=== PATIENT | female | born 1955 | race Caucasian/White ===

== ENCOUNTER 2020-10-24 17:50 | Inpatient (IN) | payer MEDICARE, BC ==
[~2020-10-24] VITALS: Ht 165.1 cm; Wt 58.1 kg
--- NOTE | 2020-10-24 18:07 | NUR ---
URINE COLLECTED AND SENT TO LAB
--- NOTE | 2020-10-24 18:13 | NUR ---
SEEN BY , SALINE LOCK ESTABLISHED, BLOOD DRAWN
--- NOTE | 2020-10-24 18:14 | NUR ---
SON AT BEDSIDE
[2020-10-24 18:34] LABS: BASOPHILS % (AUTO) 0.4 % (0.0-2.0); HEMATOCRIT 41 % (33-45); HEMOGLOBIN 13.5 g/dL (11.5-14.8); LYMPHOCYTES # (AUTO) 0.7 K/uL (0.8-4.8); LYMPHOCYTES % (AUTO) 9.3 % (20.0-44.0); MEAN CORPUSCULAR HGB CONC 33 g/dl (31.0-36.0); MEAN CORPUSCULAR VOLUME 97 fL (82-100); MONOCYTES # (AUTO) 0.2 K/uL (0.1-1.30); MONOCYTES % (AUTO) 3.1 % (2.0-12.0); NEUTROPHILS # (AUTO) 6.6 K/uL (1.8-8.9); NEUTROPHILS % (AUTO) 87.2 % (43.0-81.0); PLATELET COUNT (AUTO) 304 K/uL (150-450); RED BLOOD CELL COUNT(AUTO) 4.17 MIL/uL (4.0-5.2); WHITE BLOOD COUNT (AUTO) 7.6 K/uL (4.3-11.0)
--- NOTE | 2020-10-24 18:40 | NUR ---
ENTHONE SOLDER STRIPPER AT BEDSIDE
[2020-10-24 18:50] LABS: CALCIUM, SERUM 9.4 mg/dL (8.5-10.1); CARBON DIOXIDE 28 mmol/L (21-32); CHLORIDE 104 mmol/L (98-107); CREATININE 0.6 mg/dL (0.6-1.3); GLUCOSE 112 mg/dL (74-106); POTASSIUM 3.7 mmol/L (3.5-5.1); SODIUM SERUM 142 mmol/L (136-145); UREA NITROGEN, BLOOD 12 mg/dL (7-18)
[2020-10-24] MEDS ORDERED: IOHEXOL-350 100 ML VIAL IV ONE (18:55)
[2020-10-24] MEDS ORDERED: CT SWABBABLE VALVE TRANS SET 1 EA INFUS.SET MC ONE (18:55)
[2020-10-24] MEDS ORDERED: IV NS 0.9% 250 ML IV ONE (18:55)
[2020-10-24 18:56] LABS: ALANINE AMINOTRANSFERASE 30 U/L (12-78); ALBUMIN 4.2 g/dL (3.4-5.0); ALKALINE PHOSPHATASE 114 U/L (46-116); ASPARTATE AMINOTRANSFERASE 19 U/L (15-37); BILIRUBIN,DIRECT 0.1 mg/dL (0.0-0.2); BILIRUBIN,TOTAL 0.3 mg/dL (0.2-1.0); TOTAL PROTEIN, SERUM 8.2 g/dL (6.4-8.2)
--- NOTE | 2020-10-24 19:30 | NUR ---
RECIEVED REPORT FROM SOPHIA HERNANDEZ.
--- NOTE | 2020-10-24 20:15 | NUR ---
DR. HYLTON AT BEDSIDE.
[2020-10-24] MEDS ORDERED: ASPIRIN 325 MG TABLET PO ONE (20:30)
[2020-10-24] MEDS ORDERED: ONDANSETRON 4 MG TAB.RAPDIS SL ONE (20:30)
[2020-10-24] MEDS ORDERED: ASPIRIN 325 MG TABLET ONE (20:30)
[2020-10-24] MEDS ORDERED: ONDANSETRON 4 MG TAB.RAPDIS ONE (20:30)
--- NOTE | 2020-10-24 20:34 | NUR ---
CHAYO [phone] (SON) NEGTOBI [phone] (DAUGHTER)
--- NOTE | 2020-10-24 21:44 | NUR ---
REPORT GIVEN TO SOPHIA WOODARD
[2020-10-24] MEDS ORDERED: MAG HYDROX/AL HYDROX/SIMETH 30 ML UDC PO PRN (22:00)
[2020-10-24] MEDS ORDERED: ACETAMINOPHEN 325 MG TABLET PO PRN (22:00)
[2020-10-24] MEDS ORDERED: Z GUARD REMEDY 2 OZ OINT TP PRN (22:00)
[2020-10-24] MEDS ORDERED: MAGNESIUM HYDROXIDE 30 ML UDC PO PRN (22:00)
[2020-10-24] MEDS ORDERED: ZOLPIDEM TARTRATE 5 MG TABLET PO PRN (22:00)
[2020-10-24] MEDS ORDERED: ONDANSETRON HCL/PF 4 MG/2 ML VIAL IVP PRN (22:00)
[2020-10-24 22:10] VITALS: BP 120/73
--- NOTE | 2020-10-24 22:10 | NUR ---
TELE ADMISSION RN NOTE REPORT RECEIVED FROM KAPIL-- PATIENT ARRIVED IN THE UNIT AT THIS TIME VIA GURNEY. A/OX4. AMBULATORY. NO S/S OF APPARENT DISTRESS TOLERATING ROOM AIR. NO C/O PAIN AT THE TIME. ALTHOUGH PATIENT REPORTS FEELING NAUSEATED. PATIENT PUT IN TELE MONITOR READING SINUS RHYTHM 64BPM. PATIENT HAS R. FOREARM IV LINE, PATENT AND INTACT-- NO IV FLUIDS RUNNING AT THIS TIME. DENIES ANY ALLERGIES AND ANY MEDICAL HISTORY OTHER THAN BRONCHITIS-- PATIENT DID ADMIT THAT SHE IS A SMOKER. PATIENT REPORTED GETTING TESTED FOR COVID IN [facility] RECENTLY AND RESULT CAME BACK NEGATIVE. PATIENT ID BAND ON, BELONGINGS SIGNED AND CHECKED FOR. V/S FOLLOWS: BP- 120/73, T-98.3, HR- 63BPM, RR 18 BPM, SATURATION 96% IN ROOM AIR. WILL CONTINUE TO MONITOR PATIENT.
--- NOTE | 2020-10-24 22:21 | NUR ---
PT TRANSFERRED TO 306 PER ACLS
--- NOTE | 2020-10-24 22:45 | NUR ---
FIELD ASSESSOR NOTES PATIENT BLOOD SUGAR IS 92 AT THIS TIME. NO INSULIN.
[2020-10-24 22:47] LABS: CALCIUM, SERUM 8.8 mg/dL (8.5-10.1); CREATININE 0.7 mg/dL (0.6-1.3); POTASSIUM 4.1 mmol/L (3.5-5.1)
[2020-10-24] MEDS: BLOOD SUGAR DIAGNOSTIC 1 EACH STRIP IN SCH (22:50)
[2020-10-24 23:00] LABS: ALBUMIN 3.5 g/dL (3.4-5.0); BILIRUBIN,TOTAL 0.3 mg/dL (0.2-1.0); TOTAL PROTEIN, SERUM 6.9 g/dL (6.4-8.2)
[2020-10-24 23:01] LABS: THYROID STIMULATING HORMONE 1.697 uIU/mL (0.358-3.74)
--- NOTE | 2020-10-24 23:03 | NUR ---
WORKGROUP LEADER NOTES PATIENT REPORTS BEING NAUSEATED AND NECK HURTING A LITTLE BIT-- PATIENT A/OX4 AT THIS TIME. ASKED MATTEO CHARGE NURSE IF I COULD GIVE ZOFRAN SINCE PATIENT DID GET IT IN OR 2 HOURS AGO ONCE. CHARGE NURSE SAID IT IS OKAY. GIVEN ZOFRAN 4MG AND TYLENOL 650 MG AT THIS TIME. WILL CONTINUE TO MONITOR.
--- NOTE | 2020-10-24 23:18 | NUR ---
telegraph dispatcher notes patient requested for sleeping medication at this time. per patient she takes xanax at home in able to sleep. given ambien 5 mg. will monitor pt.
[2020-10-24 23:47] VITALS: BP 120/73
[2020-10-25] VITALS: BP 116/70
--- NOTE | 2020-10-25 | NUR ---
ORTHOTIST OR PROSTHETIST NOTES PATIENT BLOOD SUGAR 93 AT THIS TIME. NO INSULIN.
[2020-10-25] MEDS: BLOOD SUGAR DIAGNOSTIC 1 EACH STRIP IN SCH ×5 (00:15→17:28)
[2020-10-25 04:00] VITALS: BP 117/79
[2020-10-25 06:10] LABS: BASOPHILS # (AUTO) 0.1 K/uL (0.0-0.2); BASOPHILS % (AUTO) 0.9 % (0.0-2.0); EOSINOPHILS % (AUTO) 0.7 % (0.0-6.0); HEMATOCRIT 36 % (33-45); HEMOGLOBIN 12.1 g/dL (11.5-14.8); LYMPHOCYTES # (AUTO) 2.1 K/uL (0.8-4.8); LYMPHOCYTES % (AUTO) 31.7 % (20.0-44.0); MEAN CORPUSCULAR HGB CONC 34 g/dl (31.0-36.0); MEAN CORPUSCULAR VOLUME 97 fL (82-100); MONOCYTES # (AUTO) 0.3 K/uL (0.1-1.30); NEUTROPHILS # (AUTO) 4.1 K/uL (1.8-8.9); NEUTROPHILS % (AUTO) 61.7 % (43.0-81.0); PLATELET COUNT (AUTO) 256 K/uL (150-450); RED BLOOD CELL COUNT(AUTO) 3.72 MIL/uL (4.0-5.2); WHITE BLOOD COUNT (AUTO) 6.7 K/uL (4.3-11.0)
[2020-10-25 06:42] LABS: CALCIUM, SERUM 8.4 mg/dL (8.5-10.1); CREATININE 0.6 mg/dL (0.6-1.3); MAGNESIUM 2.2 mg/dL (1.8-2.4); PHOSPHORUS 4.1 mg/dL (2.5-4.9); POTASSIUM 4.2 mmol/L (3.5-5.1)
--- NOTE | 2020-10-25 07:31 | NUR ---
SPECIAL EDUCATION INCLUSION TEACHER OPENING NOTES RECEIVED PT RESTING IN BED IN NO ACUTE SIGNS OF DISTRESS. A/O X4. ABLE TO MAKE NEEDS KNOWN, DENIES PAIN OR ANY DISCOMFORTS AT THIS TIME. ON ROOM AIR, BREATHING EVEN AND UNLABORED. PT ON EXTERNAL KNOT BUMPER WITH CURRENT READING OF SB, HR 55, NO C/O CARDIAC DISTRESS VOICED. IV SL ON RFA G#20 INTACT, PATENT AND FLUSHES WELL. SAFETY MEASURES IN PLACE: BED IN LOWEST LOCKED POSITION WITH S/R UP X2. CALL LIGHT W/I EASY REACH OF PT. WILL CONTINUE TO MONITOR PT ACCORDINGLY.
--- NOTE | 2020-10-25 07:39 | NUR ---
tele closing note no significant change since admission. report given to yenni for continuity of care.
[2020-10-25 08:00] VITALS: BP 119/75
--- NOTE | 2020-10-25 08:13 | NUR ---
RN NOTES PT VERBALIZED TO MED RECON NURSE LI THAT SHE IS NOT ALLERGIC TO ASPIRIN. I WENT TO ASKED HER TO VERIFIED AND SHE STATED " I'M NOT ALLERGIC TO ASPIRIN ".
[2020-10-25] MEDS ORDERED: ALPR0.5T8 PO (08:18)
[2020-10-25] MEDS ORDERED: SERT50TA12 PO (08:18)
[2020-10-25] MEDS ORDERED: PRED10TA PO (08:18)
[2020-10-25] MEDS ORDERED: AZIT250T13 PO (08:18)
[2020-10-25] MEDS ORDERED: ALPRAZOLAM 0.5 MG TABLET PO PRN (09:00)
[2020-10-25] MEDS ORDERED: ASPIRIN 325 MG TABLET PO SCH (09:00)
[2020-10-25] MEDS ORDERED: SERTRALINE HCL 50 MG TABLET PO SCH (09:00)
--- NOTE | 2020-10-25 11:41 | NUR ---
RN NOTES DR HUNG ORDERED MRI OF BRAIN W/O CONTRAST. INFORMATION FOR MRI CHECKLIST PROVIDED BY PATIENT AND FAMILY AT BEDSIDE.
[2020-10-25 12:00] VITALS: BP 105/64
--- NOTE | 2020-10-25 13:08 | NUR ---
CLAY PROCESSING LABOURER NOTIFIED.
--- NOTE | 2020-10-25 15:26 | NUR ---
Block Stacker Consultation 11:30am: Block Stacker consultation requested for ischemic stroke. Per ED physicians notes, patient came to the ER by EMS on 10/24/2020 from home because of headache, loss of balance, right eye double vision. This INTERNATIONAL PROJECT MANAGER met with the patient, bedside in her hospital room. Patients daughter was present in the hospital room. This INTERNATIONAL PROJECT MANAGER asked patient if patient was ok with this INTERNATIONAL PROJECT MANAGER meeting with the patient with her daughter in the room, and patient stated that this was fine. Patient is awake, alert, oriented, pleasant, and cooperative with this INTERNATIONAL PROJECT MANAGER. Patient is a 65 year old female. Patient reported she began having double vision, headache, confusion, and difficulty with her balance around 11am on 10/24/20, and when she called her PCP Dr. Gordy Swan (at [facility]), her PCP instructed her to call 911. Patient was then transported to [facility] emergency department. Patient reports being independent with ADLs and IADLs, and lives at [address] with her and familu, [address], [place] [address]. Patient has 3 children. Patient denies use of illegal drugs, however stated she is a smoker. Patient stated she had stopped smoking for nearly 20 years, but then started smoking again about 8 years ago and smokes about 10 cigarettes/day. Patient stated she drinks alcohol socially. Patient denies hx of mental illness. This INTERNATIONAL PROJECT MANAGER administered the PHQ-9, and patient scored a 0 on it, stating that she has not experienced any recent changes in her mood or behavior. This INTERNATIONAL PROJECT MANAGER offered patient informational materials on stroke, titled Empowerment after Stroke and Caregivers Guide to Stroke. Patient was receptive of these resources and took the informational materials. Discharge plans discussed, and patient stated that she will be returning home with her family. Patients affect and behavior during this interview was WNL. Patient maintained appropriate eye contact. Speech was clear, voice was normal.
--- NOTE | 2020-10-25 18:01 | NUR ---
RN NOTES PT IS A/O X4 AND ABLE TO MAKE NEEDS KNOWN. PT LEFT UNIT AT 1755 AGAINST MEDICAL ADVICE DESPITE EXPLAINING TO HER AND HER SON RISKS AND CONSEQUENCES INVOLVED IN LEAVING THE HOSPITAL AT THIS TIME, BOTH VERBALIZED UNDERSTANDING. PT SIGNED AMA FORM. PT DIDN'T WANT TO WAIT FOR THE MRI OF BRAIN RESULTS THAT WAS DONE THIS AFTERNOON AND THAT THEY WILL JUST F/U THE RESULTS LATER OR TOMORROW. DR TABARES MADE AWARE. IV ACCESS ON RAC REMOVED WITH MINIMAL BLEEDING NOTED, DRY PRESSURED DRESSING APPLIED UNTIL BLEEDING STOPPED. NAME ARMBAND REMOVED. ALL BELONGINGS ACCOUNTED FOR AND SIGNED FORM. PT LEFT UNIT AMBULATORY ACCOMPANIED BY ME TO THE LOBBY. PT'S SON IN HIS CAR OUTSIDE THE LOBBY AND WILL TAKE PT'S HOME.
[2020-10-25] MEDS ORDERED: ATORVASTATIN 40 MG TABLET PO SCH (22:00)
== END 2020-10-25 17:50 | disposition left against medical advice (07) | DRG 66 ==
LOC: ER 17:52 → TELE 21:33
PROVIDERS: ADMIT Family Medicine; ATTEND Internal Medicine
DX: I63.81 Other cerebral infarction due to occlusion or stenosis of small artery (principal); F32.9 Major depressive disorder, single episode, unspecified; R73.9 Hyperglycemia, unspecified; F17.210 Nicotine dependence, cigarettes, uncomplicated; F41.9 Anxiety disorder, unspecified; J20.9 Acute bronchitis, unspecified; J42 Unspecified chronic bronchitis; Z20.822 Contact with and (suspected) exposure to COVID-19; R29.700 NIHSS score 0; H53.2 Diplopia
CPT/HCPCS: 36415; 70496-TC; 70498-TC; 70551-TC; 71045-TC; 80048-TC; 80053-TC; 80061-TC; 80076-TC; 82962-TC; 83735-TC; 83880; 84100-TC; 84443-TC; 84484-TC; 85025-TC; 85652-TC; 85730-TC; 87081-TC; 92526; 92611-TC; 93307-TC; 97116-TC; 97530-TC; C9803; G0378; J2405; J7050; Q0162; Q9967